=== PATIENT | male | born 1980 | race Caucasian/White ===

== ENCOUNTER 2016-04-21 11:23 | Emergency (ER) | payer OTHER ==
[~2016-04-21] VITALS: Wt 97.5 kg
--- NOTE | 2016-04-21 13:48 | ERA ---
ER Documentation Chief Complaint Date/Time DATE: 04/21/16 TIME: 13:39 Chief Complaint LEFT WRIST LACERATION FROM SHEET METAL . 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 Tetanus status is unknown denies any numbness tingling or loss of movement in the hand or wrist. Denies diabetes, hypertension, hyperlipidemia, or any known cardiovascular disease. ROS All systems reviewed and are negative except as per history of present illness. Medications Home Meds Active Scripts Bacitracin* (Bacitracin Oint (UD)*) 1 Applic Oint, 1 APPLIC TOP ONCE for 7 Days , PKT APPLY TO Prov:AXEL PAIZ PA-C 04/21/16 Cephalexin* (Keflex*) 500 Mg Capsule, 500 MG PO QID for 5 Days, CAP Prov:AXEL PAIZ PA-C 04/21/16 PMhx/Soc Medical and Surgical Hx: pt denies Medical Hx, pt denies Surgical Hx Physical Exam Vitals Vital Signs Date Time Temp Pulse Resp B/P Pulse Ox O2 Delivery O2 Flow Rate FiO2 04/21/16 11:25 98.6 70 20 98 Physical Exam Const: Well-appearing 36-year-old male appropriately dressed Head: Atraumatic Eyes: Normal Conjunctiva ENT: Normal External Ears, Nose and Mouth. Neck: Full range of motion..~ No meningismus. Resp: Clear to auscultation bilaterally Cardio: Regular rate and rhythm, no murmurs Abd: Soft, non tender, non distended. Normal bowel sounds Skin: No petechiae or rashes... Patient has a 4 year and 1/2 cm wound on the lateral aspect of his left wrist at his cut clean. There is no erythema or swelling or tenderness to palpation. Neurovascularly intact Back: No midline or flank tenderness Ext: No cyanosis, or edema Neur: Awake and alert Psych: Normal Mood and Affect Results 24 hrs Current Medications Medications (Trade) Dose Ordered Sig/[place] Route PRN Reason Start Time Stop Time Status Last Admin Dose Admin Lidocaine/ Epinephrine (Xylocaine 2%/ Epi (Mdv) 20 ml) 20 ml ONCE ONCE INJ 04/21/16 14:00 04/21/16 14:01 DC Tetanus Immune Globulin (Hypertet S/D) 250 units ONCE ONCE IM 04/21/16 14:30 04/21/16 14:31 DC Procedures/MDM Patient presents 3-4 hours after cutting his left lateral wrist 10-15 cm above the left lateral malleolus. Cut his from 2 mm deep and needed stitches. Patient is right-hand. Does not know his immunization status. Number the wound with 5 mL of lidocaine with epi. Used 4-0 Ethilon suture and placed 4 sutures. Patient after procedure is neurovascularly intact. Dressed the wound with antibiotic ointment and educated patient on wound care and was given a handout on wound care at discharge. Departure Condition: Stable Additional Instructions: Return to emergency department if signs of infection appear AXEL PAIZ PA-C Apr 21, 2016 13:47 AXEL PAIZ PA-C Apr 21, 2016 13:47
[2016-04-21] MEDS ORDERED: LIDOCAINE 2%/EPI (MDV) 20ML INJ INJ ONE (14:00)
[2016-04-21] MEDS ORDERED: TETANUS IMMUNE GLOB 250 UNIT SYG IM ONE (14:30)
[2016-04-21] MEDS ORDERED: CEPH-443 PO (14:32)
[2016-04-21] MEDS ORDERED: BACITUD TOP (14:32)
[2016-04-21] MEDS ORDERED: DIPHTH/TET TOX 0.5 ML INJ (ADULT) IM* ONE (15:00)
[2016-04-21] MEDS ORDERED: DIPHTH/TET/ACEL PERTUSS (ADULT) 0.5 ML VIAL IM* ONE (15:30)
== END 2016-04-21 15:19 | disposition home or self-care (01) ==
LOC: FTE 11:23
DX: S61.512A Laceration without foreign body of left wrist, initial encounter (principal); W22.8XXA Striking against or struck by other objects, initial encounter; Y92.9 Unspecified place or not applicable; Z23 Encounter for immunization
CPT/HCPCS: 90389; 90471; 90714